=== PATIENT | female | born 1990 | race Native Hawaiian/Other Pacific Islander ===

== ENCOUNTER → 2020-05-04 10:26 | Outpatient (CLI) | payer OTHER, SELFPAY ==
[2020-05-06 00:15] LABS: COVID19 Sendout Not Detected (Not Detected)
== END ==
PROVIDERS: Visit Provider Physician Assistant
DX: R05 Cough (principal); Z11.59 Encounter for screening for other viral diseases
CPT/HCPCS: 87635

== ENCOUNTER → 2021-08-30 15:32 | Outpatient (CLI) | payer OTHER, SELFPAY ==
--- NOTE | 2021-08-30 | DI.CT.S_ITS ---
PROCEDURE: CT SINUS SCREEN WO CON INDICATIONS: chronic TECHNIQUE: Noncontrast 3.0 mm axial images acquired from the frontal sinuses to the mid-sella, with coronal and sagittal reformats. For radiation dose reduction, the following was used: automated exposure control, adjustment of mA and/or kV according to patient size. COMPARISON: None. FINDINGS: Image quality: Excellent. Sinuses: Maxillary, ethmoid and sphenoid sinuses are clear. No fluid levels, mucous retention cysts/polyps or mucosal thickening. Minimal left frontal sinus mucosal thickening. Ostiomeatal Complexes: Ostiomeatal complexes are patent. Miscellaneous: Visualized intra-orbital contents are normal. Bilateral paradoxical middle turbinates are present. 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 Mild leftward nasal septal deviation. IMPRESSION: Minimal left frontal sinus mucosal thickening. Otherwise, sinuses are clear and ostiomeatal complexes are patent. Dictated by: Estee Parnell M.D. on 08/30/2021 at 16:20 Approved by: Estee Parnell M.D. on 08/30/2021 at 16:22
== END ==
PROVIDERS: Referring Provider Otolaryngology; Visit Provider Otolaryngology
DX: J32.4 Chronic pansinusitis (principal)
CPT/HCPCS: 70486